=== PATIENT | male | born 1935 | race Caucasian/White ===

== ENCOUNTER → 2016-03-28 | Outpatient (CLI) | payer MEDICARE, BC ==
[~2016-03-28] MED LIST: ASPI-664 PO; ATOR80TA75 PO; CARV3.1260 PO; CLOP75TA27 PO; DUTA0.5C14 PO; MONT10TA24 PO; PANT40TA4 PO; VALS80TA2 PO
== END | disposition home or self-care (01) ==
LOC: CRE 12:51
PROVIDERS: ATTEND Internal Medicine
DX: I25.5 Ischemic cardiomyopathy (principal); J98.11 Atelectasis
CPT/HCPCS: 93797